=== PATIENT | male | born 1930 | race Caucasian/White ===

== ENCOUNTER 2016-05-19 08:24 | Outpatient (CLI) | payer MEDICARE, OTHER | END 2016-05-19 08:40 | LOC: POD 08:24 | PROVIDERS: ATTEND Podiatrist Public Medicine | DX: B35.1 Tinea unguium (principal); L60.0 Ingrowing nail; M79.674 Pain in right toe(s); M79.675 Pain in left toe(s) | CPT/HCPCS: 11721; G0463 ==

== ENCOUNTER 2016-09-22 08:26 | Outpatient (CLI) | payer MEDICARE, OTHER | END 2016-09-22 08:27 | LOC: POD 08:26 | PROVIDERS: ATTEND Podiatrist Public Medicine | DX: B35.1 Tinea unguium (principal); L60.0 Ingrowing nail; M79.675 Pain in left toe(s); M79.674 Pain in right toe(s) | CPT/HCPCS: 11721; G0463 ==

== ENCOUNTER 2017-01-19 08:27 | Outpatient (CLI) | payer MEDICARE, OTHER | END 2017-01-19 08:30 | LOC: POD 08:27 | PROVIDERS: ATTEND Podiatrist Public Medicine | DX: B35.1 Tinea unguium (principal); L60.0 Ingrowing nail; M79.675 Pain in left toe(s); M79.674 Pain in right toe(s) | CPT/HCPCS: 11721; G0463 ==

== ENCOUNTER 2017-05-25 08:26 | Outpatient (CLI) | payer MEDICARE, OTHER | END 2017-05-25 09:49 | LOC: POD 08:26 | PROVIDERS: ATTEND Podiatrist Public Medicine | DX: B35.1 Tinea unguium (principal); L60.0 Ingrowing nail; M79.674 Pain in right toe(s); M79.675 Pain in left toe(s) | CPT/HCPCS: 11721; G0463 ==

== ENCOUNTER 2017-09-07 08:40 | Outpatient (CLI) | payer MEDICARE, OTHER | END 2017-09-07 08:42 | LOC: POD 08:40 | PROVIDERS: ATTEND Podiatrist Public Medicine | DX: B35.1 Tinea unguium (principal); L60.0 Ingrowing nail; M79.674 Pain in right toe(s); M79.675 Pain in left toe(s) | CPT/HCPCS: 11721; G0463 ==

== ENCOUNTER 2018-05-24 10:22 | Outpatient (CLI) | payer MEDICARE, OTHER ==
--- NOTE | 2018-05-24 19:28 | Diagnostic Imaging Report ---
LINO TOBIN [facility] [address] [id number] Report Submission Date: May 24, 2018 11:55:02 AM CDT Patient Study Name: COCO CORREA Date: May 24, 2018 10:34:30 AM CDT Modality Type: US Gender: M Description: US DUPLEX CAROTID BILATERAL : 32 Institution: [facility] Physician: LINO TOBIN Examination: Carotid artery ultrasound History: Syncope Comparison exams: None available Findings: Right carotid: Common carotid artery peak systolic velocity 113.3 cm/s; end diastolic velocity 21.6 cm/s. Internal carotid artery peak systolic velocity 109.6 cm/s; end diastolic velocity 30.8 cm/s. External carotid artery velocity to 140.8 cm/s. Vertebral artery velocity 38.6 cm/s Vertebral flow antegrade. Normal waveforms. 40% narrowing of the carotid bulb/ICA origin Left carotid: Common carotid artery peak systolic velocity 102.3 cm/s; end diastolic velocity 20.4cm/s. Internal carotid artery peak systolic velocity 129.4 cm/s; end diastolic velocity 529.9 cm/s. External carotid artery velocity to 79.4 cm/s. Vertebral artery velocity 15.1 cm/s Vertebral flow antegrade. Normal waveforms. 52% narrowing of the carotid bulb/ICA origin. Right ICA/CCA Ratio: 1.0; Left ICA/CCA Ratio 1.3 Impression: Carotids ratios not elevated. No restriction to hemodynamic flow. 40% narrowing of the right carotid bulb/ICA origin 52% narrowing of the left carotid bulb/ICA origin. Electronically signed on May 24, 2018 11:55:02 AM CDT by: Nino JOSUE
--- NOTE | 2018-05-24 19:32 | Diagnostic Imaging Report ---
LINO TOBIN [facility] [address] [facility] [address] [place], [place]. [address] Report Submission Date: May 24, 2018 4:53:23 PM CDT Patient Study Name: COCO CORREA Date: May 24, 2018 11:20:20 AM CDT Modality Type: CT Gender: M Description: HEAD W/O : 32 Institution: [facility] Physician: LINO TOBIN Examination: CT head without contrast History: LEFT ARM NUMBNESS Comparison exam: None available Technique: Noncontrast head CT protocol. Findings: Ventricles and sulci are prominent. Cerebrocerebellar parenchyma demonstrates periventricular low attenuation consistent with small vessel disease. Left temporal lobe low attenuation. No evidence for parenchymal hemorrhage. No evidence for mass or mass effect. No midline shift. No extra axial fluid collections. Partial visualization of the paranasal sinuses, mastoid air cells, orbits, skull and scalp without gross irregularity. Impression: Advanced age related changes. No acute parenchymal process. No hemorrhage. Electronically signed on May 24, 2018 4:53:23 PM CDT by: Nino JOSUE
== END 2018-05-24 10:24 ==
LOC: RAD 10:22
PROVIDERS: ATTEND Family Medicine
DX: R20.0 Anesthesia of skin (principal); R53.1 Weakness
CPT/HCPCS: 70450; 93880